=== PATIENT | male | born 1975 | race Caucasian/White ===

== ENCOUNTER 2017-02-18 16:25 | Inpatient (IN) | payer SELFPAY ==
[~2017-02-18] VITALS: Ht 185.4 cm; Wt 69.2 kg
[2017-02-18] VITALS (7 sets, daily range): BP systolic 119–141; BP diastolic 80–99; PULSE 75–105; RESP 18–20; TEMP 98.2; O2SAT 94–98
[2017-02-18] MEDS ORDERED: ACTIVATED CHARCOAL/SORBITOL LIQUID 25 GM/120 ML BTL NG ONE (16:45)
[2017-02-18] MEDS ORDERED: SODIUM CHLORIDE 0.9% FLUSH 10 ML FLUSH IVF PRN (16:45)
[2017-02-18 16:54] LABS: AUTOMATED NEUTROPHIL # 4.4 TH/MM3 (1.8-7.7); BASOPHIL # 0.1 TH/MM3 (0-0.2); BASOPHIL % 1.1 % (0.0-2.0); EOSINOPHIL # 0.3 TH/MM3 (0-0.4); HEMATOCRIT 47.8 % (39.0-51.0); HEMO FLAGS DIFF FINAL; LYMPH % 27.7 % (9.0-44.0); LYMPHOCYTE # 2.2 TH/MM3 (1.0-4.8); MEAN CELL VOLUME 87.8 FL (80.0-100.0); MONO % 9.7 % (0.0-8.0); NEUT % 57.5 % (16.0-70.0); PLATELET COUNT 307 TH/MM3 (150-450); RED BLOOD COUNT 5.44 MIL/MM3 (4.50-5.90); RED CELL DISTRIBUTION WIDTH 12.8 % (11.6-17.2); WHITE BLOOD COUNT 7.9 TH/MM3 (4.0-11.0)
--- NOTE | 2017-02-18 17:08 | PD ---
HPI . Intentional overdose Chief Complaint: OD/ Ingestion Time Seen by Provider: 16:37 Travel History International Travel<30 days: No Contact w/Intl Traveler<30days: No Traveled to known affect area: No History of Present Illness HPI Patient presents voluntarily following an intentional overdose. He states that he took 22 [id number] diphenhydramine tablets. He immediately told his significant other what he had done and was brought here for evaluation and treatment. PFSH Past Medical History Blood Disorders: No Bipolar Disorder: Yes Anxiety: Yes Depression: Yes Cancer: No Cardiovascular Problems: No Diminished Hearing: Yes (SLIGHTLY HARD OF HEARING) Endocrine: No Gastrointestinal Disorders: No Genitourinary: No Immune Disorder: No Implanted Vascular Access Dvce: No Musculoskeletal: No Neurologic: No Psychiatric: Yes (DEPRESSION) Respiratory: No Immunizations Current: Yes PNEUMOCCOCAL Vaccine (Year): 2 Past Surgical History Other Surgery: No Social History Alcohol Use: Yes (DRANK YESTERDAY) Tobacco Use: Yes (1PPD) Substance Use: Yes (marijuana ) Allergies-Medications (Allergen,Severity, Reaction): Coded Allergies: Penicillin (Verified Allergy, Unknown, HIVES, 02/18/17) Reported Meds & Prescriptions Reported Meds & Active Scripts Active Reported Diphenhydramine HCl (Diphenhydramine HCl (Sleep)) 50 Mg Tab Review of Systems Except as stated in HPI: all other systems reviewed are Neg General / Constitutional: No: Fever, Chills Psychiatric: Positive: Depression, Suicidal Ideations Physical Exam Narrative GENERAL: Very pleasant, slightly disheveled appearing thin man who is tremulous. SKIN: Warm and dry. HEAD: Atraumatic. Normocephalic. EYES: Pupils equal and round. Extraocular movements are intact. ENT: No nasal bleeding or discharge. Mucous membranes pink and moist. NECK: Trachea midline. Neck is supple. CARDIOVASCULAR: Regular rate and rhythm. RESPIRATORY: No accessory muscle use. MUSCULOSKELETAL: No obvious deformities. No edema. NEUROLOGICAL: Awake and alert. No obvious cranial nerve deficits. Motor grossly within normal limits. Normal speech. PSYCHIATRIC: Good eye contact. No apparent internal stimuli. Poor judgment. Depressed. Data Data Last Documented VS Vital Signs Date Time Temp Pulse Resp B/P Pulse Ox O2 Delivery O2 Flow Rate FiO2 02/18/17 18:40 81 20 140/92 94 02/18/17 16:48 98.2 Orders Charcoal Active-Sorbitol Liq (Charcoal A (02/18/17 16:45) Basic Metabolic Panel (Bmp) (02/18/17 16:38) Complete Blood Count With Diff (02/18/17 16:38) Iv Access Insert/Monitor (02/18/17 16:38) Ecg Monitoring (02/18/17 16:38) Oximetry (02/18/17 16:38) Sodium Chloride 0.9% Flush (Ns Flush) (02/18/17 16:45) Drug Screen, Random Urine (02/18/17 16:38) Salicylates (Aspirin) (02/18/17 16:38) Tylenol (Acetaminophen) (02/18/17 16:38) Alcohol (Ethanol) (02/18/17 16:40) Hepatic Functional Panel (02/18/17 16:40) Labs Laboratory Tests Test 02/18/17 02/18/17 16:40 18:35 White Blood Count 7.9 TH/MM3 Red Blood Count 5.44 MIL/MM3 Hemoglobin 15.8 GM/DL Hematocrit 47.8 % Mean Corpuscular Volume 87.8 FL Mean Corpuscular Hemoglobin 29.0 PG Mean Corpuscular Hemoglobin 33.0 % Concent Red Cell Distribution Width 12.8 % Platelet Count 307 TH/MM3 Mean Platelet Volume 6.9 FL Neutrophils (%) (Auto) 57.5 % Lymphocytes (%) (Auto) 27.7 % Monocytes (%) (Auto) 9.7 % Eosinophils (%) (Auto) 4.0 % Basophils (%) (Auto) 1.1 % Neutrophils # (Auto) 4.4 TH/MM3 Lymphocytes # (Auto) 2.2 TH/MM3 Monocytes # (Auto) 0.8 TH/MM3 Eosinophils # (Auto) 0.3 TH/MM3 Basophils # (Auto) 0.1 TH/MM3 CBC Comment DIFF FINAL Differential Comment Sodium Level 140 MEQ/L Potassium Level 3.3 MEQ/L Chloride Level 103 MEQ/L Carbon Dioxide Level 28.2 MEQ/L Anion Gap 9 MEQ/L Blood Urea Nitrogen 16 MG/DL Creatinine 1.10 MG/DL Estimat Glomerular Filtration 74 ML/MIN Rate Random Glucose 86 MG/DL Calcium Level 8.9 MG/DL Total Bilirubin 0.4 MG/DL Direct Bilirubin 0.1 MG/DL Indirect Bilirubin 0.3 MG/DL Aspartate Amino Transf 15 U/L (AST/SGOT) Alanine Aminotransferase 21 U/L (ALT/SGPT) Total Protein 7.5 GM/DL Albumin 4.1 GM/DL Salicylates Level 2.7 MG/DL Acetaminophen Level LESS THAN 2.0 MCG/ML Ethyl Alcohol Level LESS THAN 3 MG/DL Urine Opiates Screen NEG Urine Barbiturates Screen NEG Urine Amphetamines Screen NEG Urine Benzodiazepines Screen NEG Urine Cocaine Screen NEG Urine Cannabinoids Screen POS MDM Medical Decision Making Medical Screen Exam Complete: Yes Emergency Medical Condition: Yes Interpretation(s) EKG shows a sinus tachycardia with a ventricular rate of 110. No acute ischemic change. Differential Diagnosis Differential diagnosis includes but is not limited to depression with suicidal gesture, suicide attempt, suicidal ideation, attention seeking behavior. Narrative Course Patient presents to us voluntarily following an intentional overdose of Benadryl. Poison control was called by the triage nurse. Poison control suggested charcoal. This has been initiated along with the usual overdose lab workup. CBC & BMP Diagram 02/18/17 16:40 His tox screen is positive for THC. His Tylenol and aspirin levels are low. His alcohol level was negative. LFTs look normal. At this point, we are just awaiting word from poison control or not he is medically clear. Once he is medically clear, he will be sent to [facility] for psychiatric evaluation. His care is being turned over to the oncoming physician. Diagnosis Primary Impression: Overdose Qualified Code: T50.902A - Overdose, intentional self-harm, initial encounter Condition: Connie Crane MD Feb 18, 2017 17:07
[2017-02-18 17:13] LABS: CHLORIDE 103 MEQ/L (98-107); POTASSIUM 3.3 MEQ/L (3.5-5.1); SODIUM (NA) 140 MEQ/L (136-145)
[2017-02-18 17:16] LABS: ANION GAP 9 MEQ/L (5-15); BICARBONATE 28.2 MEQ/L (21.0-32.0); BLOOD UREA NITROGEN 16 MG/DL (7-18)
[2017-02-18] MEDS ORDERED: DIPH50TA3 (17:18)
[2017-02-18 17:19] LABS: GLOMERULAR FILTRATION RATE 74 ML/MIN (>89)
[2017-02-18 18:35] LABS: ACETAMINOPHEN LESS THAN 2.0 MCG/ML (10.0-30.0)
[2017-02-18 18:52] LABS: BARBITURATES, URINE NEG (NEG)
[2017-02-18 18:53] LABS: AMPHETAMINE, URINE NEG (NEG); COCAINE, URINE NEG (NEG)
[2017-02-18 18:59] LABS: AST (GOT) 15 U/L (15-37)
[2017-02-18 19:01] LABS: TOTAL BILIRUBIN ADULT 0.4 MG/DL (0.2-1.0)
[2017-02-18 19:02] LABS: ALT (GPT) 21 U/L (12-78); INDIRECT BILIRUBIN 0.3 MG/DL (0.0-0.8)
[2017-02-18 19:05] LABS: ALKALINE PHOSPHATASE 83 U/L (45-117)
--- NOTE | 2017-02-18 20:17 | PD ---
Physical Exam Date Seen by Provider: Feb 18, 2017 Time Seen by Provider: 19:20 Narrative Accepted in transfer of care from Dr. Ayoub GENERAL: Well-developed well-nourished male in no acute distress no respiratory distress; GCS 15 Data Data Last Documented VS Vital Signs Date Time Temp Pulse Resp B/P Pulse Ox O2 Delivery O2 Flow Rate FiO2 02/18/17 19:31 79 18 138/94 97 02/18/17 16:48 98.2 Orders Charcoal Active-Sorbitol Liq (Charcoal A (02/18/17 16:45) Basic Metabolic Panel (Bmp) (02/18/17 16:38) Complete Blood Count With Diff (02/18/17 16:38) Iv Access Insert/Monitor (02/18/17 16:38) Ecg Monitoring (02/18/17 16:38) Oximetry (02/18/17 16:38) Sodium Chloride 0.9% Flush (Ns Flush) (02/18/17 16:45) Drug Screen, Random Urine (02/18/17 16:38) Salicylates (Aspirin) (02/18/17 16:38) Tylenol (Acetaminophen) (02/18/17 16:38) Alcohol (Ethanol) (02/18/17 16:40) Hepatic Functional Panel (02/18/17 16:40) Electrocardiogram (02/18/17 ) Potassium Chloride (Kcl) (02/18/17 20:30) Labs Laboratory Tests Test 02/18/17 02/18/17 16:40 18:35 White Blood Count 7.9 TH/MM3 Red Blood Count 5.44 MIL/MM3 Hemoglobin 15.8 GM/DL Hematocrit 47.8 % Mean Corpuscular Volume 87.8 FL Mean Corpuscular Hemoglobin 29.0 PG Mean Corpuscular Hemoglobin 33.0 % Concent Red Cell Distribution Width 12.8 % Platelet Count 307 TH/MM3 Mean Platelet Volume 6.9 FL Neutrophils (%) (Auto) 57.5 % Lymphocytes (%) (Auto) 27.7 % Monocytes (%) (Auto) 9.7 % Eosinophils (%) (Auto) 4.0 % Basophils (%) (Auto) 1.1 % Neutrophils # (Auto) 4.4 TH/MM3 Lymphocytes # (Auto) 2.2 TH/MM3 Monocytes # (Auto) 0.8 TH/MM3 Eosinophils # (Auto) 0.3 TH/MM3 Basophils # (Auto) 0.1 TH/MM3 CBC Comment DIFF FINAL Differential Comment Sodium Level 140 MEQ/L Potassium Level 3.3 MEQ/L Chloride Level 103 MEQ/L Carbon Dioxide Level 28.2 MEQ/L Anion Gap 9 MEQ/L Blood Urea Nitrogen 16 MG/DL Creatinine 1.10 MG/DL Estimat Glomerular Filtration 74 ML/MIN Rate Random Glucose 86 MG/DL Calcium Level 8.9 MG/DL Total Bilirubin 0.4 MG/DL Direct Bilirubin 0.1 MG/DL Indirect Bilirubin 0.3 MG/DL Aspartate Amino Transf 15 U/L (AST/SGOT) Alanine Aminotransferase 21 U/L (ALT/SGPT) Alkaline Phosphatase 83 U/L Total Protein 7.5 GM/DL Albumin 4.1 GM/DL Salicylates Level 2.7 MG/DL Acetaminophen Level LESS THAN 2.0 MCG/ML Ethyl Alcohol Level LESS THAN 3 MG/DL Urine Opiates Screen NEG Urine Barbiturates Screen NEG Urine Amphetamines Screen NEG Urine Benzodiazepines Screen NEG Urine Cocaine Screen NEG Urine Cannabinoids Screen POS MDM Medical Record Reviewed: Yes Supervised Visit with KANDI: No Interpretation(s) CBC & BMP Diagram 02/18/17 16:40 Vital Signs Date Time Temp Pulse Resp B/P Pulse Ox O2 Delivery O2 Flow Rate FiO2 02/18/17 19:31 79 18 138/94 97 02/18/17 18:40 81 20 140/92 94 02/18/17 17:21 88 20 138/90 95 02/18/17 16:53 97 02/18/17 16:48 98.2 105 20 141/99 97 LFTs and normal range Acetaminophen: Less than 2, not elevated; salicylate level II.7, not elevated; urine drug screen positive for cannabinoids; alcohol: Less than 3, not elevated EKG sinus tachycardia rate 110 incomplete right bundle branch block nonspecific septal T wave changes no ectopy QRS of 104 ms QTc 427 ms EKG #2 sinus rhythm rate 73 incomplete right bundle branch block with QRS of 102 ms QTC 410 ms Differential Diagnosis Accepted in transfer of care from Dr. Ayoub; please refer to her dictation Narrative Course Accepted in transfer of care from Dr. Ayoub; waiting labs to complete medical At 8:15 PM patient remains alert oriented to person place time and events GCS 15 recently ambulation bathroom with sitter without issue labs resulted and found to be in normal range Patient's case has been discussed with poison control with recommendation for repeat EKG otherwise values are acceptable for medical clearance and patient has been observed for approximately 4 hours. Patient's potassium replaced with oral potassium. Patient is medically cleared for psych evaluation/psych screening for intentional reported Benadryl overdose; patient Glez act placed by Dr. Ayoub. Diagnosis Primary Impression: Overdose Qualified Code: T50.902A - Overdose, intentional self-harm, initial encounter Additional Impression: Hypokalemia Condition: Stable Mitra Sequeira MD Feb 18, 2017 20:17
[2017-02-18] MEDS ORDERED: POTASSIUM CHLORIDE 20 MEQ CONTROLLED RELEASE TAB PO ONE (20:30)
[2017-02-19 02:04] VITALS: BP 111/66; PULSE 60; RESP 17; O2SAT 96
[2017-02-19 06:30] VITALS: BP 138/83; PULSE 59; RESP 17; O2SAT 98
[2017-02-19] MEDS ORDERED: hydrOXYzine HCL 50 MG TAB PO PRN (09:30)
[2017-02-19] MEDS ORDERED: ALUMINUM/MAGNESIUM/SIMETH 30 ML CUP PO PRN (09:30)
[2017-02-19] MEDS: THIAMINE HCL 100 MG TAB PO SCH (09:30)
[2017-02-19] MEDS ORDERED: BENZTROPINE MESYLATE 1 MG TAB PO PRN (09:30)
[2017-02-19] MEDS ORDERED: BENZTROPINE MESYLATE 2 MG/2 ML VIAL IM PRN (09:30)
[2017-02-19] MEDS ORDERED: diphenhydrAMINE HCL 50 MG CAP PO PRN (09:30)
[2017-02-19] MEDS ORDERED: LORazepam 2 MG TAB PO PRN (09:30)
[2017-02-19] MEDS ORDERED: FLUMAZENIL 0.5 MG/5 ML VIAL IV PUSH PRN (09:30)
[2017-02-19] MEDS ORDERED: LORazepam 2 MG/ML VIAL IV PUSH PRN ×4 (09:30)
[2017-02-19] MEDS: FOLIC ACID 1 MG TAB PO SCH (09:30)
[2017-02-19] MEDS ORDERED: ACETAMINOPHEN 325 MG TAB PO PRN (09:30)
[2017-02-19] MEDS ORDERED: MAGNESIUM HYDROXIDE SUSP 30 ML CUP PO PRN (09:30)
[2017-02-19 10:00] VITALS: BP 120/67; PULSE 63; RESP 18
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
[2017-02-19] MEDS: buPROPion HCL 150 MG SUSTAINED RELEASE TAB PO SCH (11:00)
[2017-02-19 14:57] VITALS: BP 121/83; PULSE 60; RESP 18; TEMP 98.9
[2017-02-19 19:16] VITALS: BP 133/85; PULSE 61; RESP 19; TEMP 98.5; O2SAT 97
[2017-02-19] MEDS: LORazepam 1 MG TAB PO PRN (21:30)
[2017-02-20 06:17] VITALS: BP 113/65; PULSE 65; RESP 16; TEMP 98; O2SAT 97
[2017-02-20 07:29] LABS: ANION GAP 5 MEQ/L (5-15); BICARBONATE 29.6 MEQ/L (21.0-32.0); BLOOD UREA NITROGEN 17 MG/DL (7-18); CHLORIDE 104 MEQ/L (98-107); GLOMERULAR FILTRATION RATE 85 ML/MIN (>89); MAGNESIUM 2.3 MG/DL (1.5-2.5); POTASSIUM 3.9 MEQ/L (3.5-5.1); SODIUM (NA) 139 MEQ/L (136-145)
[2017-02-20 07:31] LABS: HDL CHOLESTEROL 34.8 MG/DL (40.0-60.0); LDL CHOLESTEROL 66 MG/DL (0-99)
[2017-02-20] MEDS: REMOVE OLD PATCH T-DERMAL SCH (09:00)
[2017-02-20] MEDS: NICOTINE 21 MG/24 HR PATCH T-DERMAL SCH (09:00)
[2017-02-20] MEDS: buPROPion HCL 150 MG SUSTAINED RELEASE TAB PO SCH (09:23)
[2017-02-20] MEDS: THIAMINE HCL 100 MG TAB PO SCH (09:23)
[2017-02-20] MEDS: FOLIC ACID 1 MG TAB PO SCH (09:23)
[2017-02-20] MEDS ORDERED: PNEUMOCOCCAL POLYVALENT INJ 25 MCG/0.5 ML SYR IM ONE (10:00)
--- NOTE | 2017-02-20 18:25 | HHI.PYPN ---
Subjective Remarks Pt seen and discussed with staff. He states that he is tolerating medications without side effects.He states that mood is a bit better today. He processed suicide attempt with MD and RN. He reports intentions at time of OD was to . He reports that he has a long hx of depression and substance abuse since adolescence. He reports that he previously attended [facility] but stopped because he did not like his doctor there and felt that he no longer needed antidepressants. He reports that he was under numerous stressors at time of OD and felt overwhelmed. "I was having one of my episodes." He remains depressed but reports outlook is a bit more hopeful today. He denies current SI/HI. Review of Systems Psychiatric: COMPLAINS OF: Depression Objective Alert: Yes [place]: Person, Place, Date, Situation Mood: Depressed Affect: Restricted Memory Intact: Immediate, Recent, Remote Hallucinations: Other (none) Delusions: No Delusion Type: Other (none) Suicidal: Ideation (denies) Homicidal: Ideation (denies) Insight/Judgement fair Labs Test 02/20/17 06:09 Sodium Level 139 MEQ/L Potassium Level 3.9 MEQ/L Chloride Level 104 MEQ/L Carbon Dioxide Level 29.6 MEQ/L Anion Gap 5 MEQ/L Blood Urea Nitrogen 17 MG/DL Creatinine 0.97 MG/DL Estimat Glomerular Filtration 85 ML/MIN Rate Random Glucose 79 MG/DL Calcium Level 9.0 MG/DL Magnesium Level 2.3 MG/DL Triglycerides Level 117 MG/DL Cholesterol Level 124 MG/DL LDL Cholesterol 66 MG/DL HDL Cholesterol 34.8 MG/DL Cholesterol/HDL Ratio 3.56 RATIO Vitals/IOs Vital Signs Date Time Temp Pulse Resp B/P Pulse Ox O2 Delivery O2 Flow Rate FiO2 02/20/17 06:17 98.0 65 16 113/65 97 02/19/17 10:00 Room Air Assessment & Plan Problem List: (1) MDD (major depressive disorder), recurrent episode, severe ICD Code: F33.2 Assessment & Plan Continue current tx plan. Estimated LOS: days Justification for Cont. Inpt. impairments in safety Ashley Coronel MD Feb 20, 2017 18:25
[2017-02-20 20:15] VITALS: BP 132/77; PULSE 55; RESP 18; TEMP 98; O2SAT 97
[2017-02-20] MEDS: LORazepam 1 MG TAB PO PRN (21:18)
[2017-02-21 06:00] VITALS: BP 102/60; PULSE 63; RESP 18; TEMP 98; O2SAT 97
[2017-02-21] MEDS: REMOVE OLD PATCH T-DERMAL SCH (09:00)
[2017-02-21] MEDS: NICOTINE 21 MG/24 HR PATCH T-DERMAL SCH (09:00)
[2017-02-21] MEDS: THIAMINE HCL 100 MG TAB PO SCH (09:26)
[2017-02-21] MEDS: FOLIC ACID 1 MG TAB PO SCH (09:26)
[2017-02-21] MEDS: buPROPion HCL 150 MG SUSTAINED RELEASE TAB PO SCH (09:26)
[2017-02-21 11:04] LABS: HEMOGLOBIN A1b 1.7 %; HEMOGLOBIN Ao 85.8 %; HEMOGLOBIN P3 3.7 %
[2017-02-21 17:34] VITALS: BP 116/74; PULSE 56; RESP 20; TEMP 97.7; O2SAT 99
[2017-02-21 17:41] VITALS: BP 116/74; PULSE 70; RESP 20; TEMP 97.7; O2SAT 99
--- NOTE | 2017-02-21 18:50 | HHI.PYPN ---
Subjective Remarks Pt seen and discussed with staff. Pt remains irritable and depressed. He minimizes symptoms and states that he is upset because his partner is crying a lot. "she's worse off then me." No medication side effects. Limited coping skills. He denies SI/HI. Review of Systems Psychiatric: COMPLAINS OF: Depression Objective Alert: Yes [place]: Person, Place, Date, Situation Mood: Depressed Affect: Restricted Memory Intact: Immediate, Recent, Remote Hallucinations: Other (none) Delusions: No Delusion Type: Other (none) Suicidal: Ideation (denies) Homicidal: Ideation (denies) Insight/Judgement poor Vitals/IOs Vital Signs Date Time Temp Pulse Resp B/P Pulse Ox O2 Delivery O2 Flow Rate FiO2 02/21/17 17:41 97.7 70 20 116/74 99 02/19/17 10:00 Room Air Assessment & Plan Problem List: (1) MDD (major depressive disorder), recurrent episode, severe ICD Code: F33.2 Assessment & Plan Continue current tx plan. Estimated LOS: days Justification for Cont. Inpt. monitoring for safety, risk of decompensation Ashley Coronel MD Feb 21, 2017 18:50
[2017-02-21] MEDS: LORazepam 1 MG TAB PO PRN (21:30)
--- NOTE | 2017-02-21 21:41 | EKG ---
Date Performed: 02/18/2017 Time Performed: 20:21:42 PTAGE: 41 years EKG: Sinus rhythm . Incomplete RBBB Borderline ECG PREVIOUS TRACING : 02/18/2017 16.40 DOCTOR: Marisol Velez Interpretating Date/Time 02/21/2017 21:40:18
--- NOTE | 2017-02-21 21:42 | EKG ---
Date Performed: 02/18/2017 Time Performed: 16:40:38 PTAGE: 41 years EKG: Sinus tachycardia. Incomplete RBBB Septal T wave changes are nonspecific Borderline ECG PREVIOUS TRACING : 07/13/2016 14.10 DOCTOR: Marisol Velez Interpretating Date/Time 02/21/2017 21:40:54
[2017-02-22 06:02] VITALS: BP 104/64; PULSE 54; RESP 17; TEMP 97.6; O2SAT 97
[2017-02-22] MEDS: FOLIC ACID 1 MG TAB PO SCH (08:49)
[2017-02-22] MEDS: THIAMINE HCL 100 MG TAB PO SCH (08:49)
[2017-02-22] MEDS: buPROPion HCL 150 MG SUSTAINED RELEASE TAB PO SCH (08:49)
[2017-02-22] MEDS: REMOVE OLD PATCH T-DERMAL SCH (09:00)
[2017-02-22] MEDS: NICOTINE 21 MG/24 HR PATCH T-DERMAL SCH (09:00)
[2017-02-22] MEDS ORDERED: FOLI1TAB4 PO (14:54)
[2017-02-22] MEDS ORDERED: VITA100T2 PO (14:54)
[2017-02-22] MEDS ORDERED: BUPR150CR PO (14:54)
--- NOTE | 2017-02-22 15:03 | HHI.DS ---
Psychiatry Discharge Summary Inpatient Psychiatric care?: Yes Advance Directive: No Reason Not Provided: pt declined Mental Health AdvanceDirective: No Health Care Proxy: No Admission Admission Date Feb 19, 2017 at 09:31 Admission Diagnosis: (1) MDD (major depressive disorder), recurrent episode, severe ICD Code: F33.2 Brief History Please see H&P dictated by Dr. Ricki de on 02/19/17 Tobacco Use In Past 30 Days: 5 or More Cigarettes/Day Alcohol Use: Monthly or Less Hospital Course Patient seen in his room nurse Mikey, chart reviewed. Dr. lyle tissue reviewed and agreed with. Patient states his suicidality has revolved. Now denies suicidality homicidality voices or visions. States his back on his medication his mood is better. he said he has had good conversations with his fiance. She wants him home. He states he has not smoked marijuana in a week is willing to commit Still sobriety from alcohol and any other drugs. At this time patient does not meet criteria for inpatient psychiatric hospitalization. Is able contracted to do no harm. He is willing to follow-up [facility] outpatient. Thus patient will be discharged today with Rx 1 month follow- up as above Results Blood Pressure 104 / 64 Vital Signs Date Time Temp Pulse Resp B/P Pulse Ox O2 Delivery O2 Flow Rate FiO2 02/22/17 06:02 97.6 54 17 104/64 97 02/19/17 10:00 Room Air Laboratory Tests Test 02/20/17 06:09 Estimat Glomerular Filtration 85 ML/MIN (>89) Rate HDL Cholesterol 34.8 MG/DL (40.0-60.0) Laboratory Results Test 02/20/17 06:09 Hemoglobin A1c 5.3 % (4.3-6.0) Triglycerides Level 117 MG/DL (42-150) Cholesterol Level 124 MG/DL (120-200) LDL Cholesterol 66 MG/DL (0-99) HDL Cholesterol 34.8 MG/DL (40.0-60.0) Summary of Procedures None done Pending results at discharge: No Medications # of Antipsychotic meds at D/C: 0 Approp Antipsych med options 1 - Minimum of three failed multiple trials of monotherapy. 2 - Documented plan to taper to monotherapy due to previous use of multiple meds OR cross-taper in progress at D/C. 3 - Documentation of augmentation of Clozapine. 4 - Justification other than those listed in allowable values 1-3, document here : Discharge Discharge Date: Feb 22, 2017 Discharge Diagnosis: (1) MDD (major depressive disorder), recurrent episode, severe Diagnosis: Principal ICD Code: F33.2 Mental Status Exam at Disch Alert oriented white male calm cooperative no acute distress, normal active, mood is euthymic to mildly dysphoric, affect shows good range and intensity. Speech rate and rhythm within normal limits for no formal thought disorders. No auditory or visual hallucinations no delusions noted. Insight and judgment poor to fair. Cognition grossly intact Pt Condition on Discharge: Stable Discharge Disposition: Discharge Home Discharge Instructions Diet Instructions: As Tolerated, No Restrictions Activities you can perform: Regular-No Restrictions Scheduled Appointment: Denilson Lemos Appointment Date: Feb 26, 2017 Appointment Time: 07:30am Discharge Time > 30 minutes Discharge/Advance Care Plan Health Problems: (1) MDD (major depressive disorder), recurrent episode, severe Goals to promote your health * To prevent worsening of your condition and complications * To maintain your health at the optimal level Directions to meet your goals Take your medications as prescribed Follow your dietary instruction Follow activity as directed Keep your appointments as scheduled Take your immunizations and boosters as scheduled If your symptoms worsen call your PCP, if no PCP go to Urgent Care Center or Emergency Room For 14/06 questions related to your inpatient stay or results of tests pending at discharge, please contact Dr. Nikhil Woods at Smoking is Dangerous to Your Health. Avoid second hand smoking Nikhil Woods MD Feb 22, 2017 15:03
== END 2017-02-22 17:15 | disposition home or self-care (01) | DRG 885 ==
LOC: PHED 16:25 → NEDA 02-19 09:31 → H260 02-19 11:20
PROVIDERS: ADMIT Psychiatry & Neurology Psychiatry; ATTEND Psychiatry & Neurology Psychiatry
DX: F33.1 Major depressive disorder, recurrent, moderate (principal); E87.6 Hypokalemia; F10.20 Alcohol dependence, uncomplicated; F12.10 Cannabis abuse, uncomplicated; T50.902A Poisoning by unspecified drugs, medicaments and biological substances, intentional self-harm, initial encounter; H91.90 Unspecified hearing loss, unspecified ear; F17.200 Nicotine dependence, unspecified, uncomplicated; Z79.899 Other long term (current) drug therapy; Z91.5 Personal history of self-harm; Y92.9 Unspecified place or not applicable
CPT/HCPCS: 80048; 80061; 80076; 80307; 83036; 83735; 85025; 93005

== ENCOUNTER 2017-12-26 20:56 | Emergency (ER) | payer SELFPAY ==
[~2017-12-26] VITALS: Ht 185.4 cm; Wt 75.9 kg
[~2017-12-26 20:56] MED LIST: BUPR150CR PO; FOLI1TAB4 PO; VITA100T2 PO
[2017-12-26 20:58] VITALS: BP 118/65; PULSE 84; RESP 18; TEMP 98.8; O2SAT 96
[2017-12-26] MEDS ORDERED: IBUP1TAB7 PO (22:01)
[2017-12-26] MEDS ORDERED: CEPH-460 PO (22:01)
--- NOTE | 2017-12-26 22:02 | PD ---
HPI Chief Complaint: Oral / Dental Pain or Problem Time Seen by Provider: 21:55 Travel History International Travel<30 days: No Contact w/Intl Traveler<30days: No Traveled to known affect area: No History of Present Illness HPI The patient is a 42-year-old male that has a history of bad teeth who complains of his upper incisors becoming painful on the gums and surrounding tissues swollen for about a week. He did not call a dentist yet. He does not have any insurance. He states he got a rash when he was a child after eating prescribed penicillin. PFSH Past Medical History Medical History: Denies Significant Hx Blood Disorders: No Bipolar Disorder: Yes Anxiety: Yes Depression: Yes Cancer: No Cardiovascular Problems: No Diabetes: No Diminished Hearing: Yes (SLIGHTLY HARD OF HEARING) Endocrine: No Gastrointestinal Disorders: No Genitourinary: No Headaches: No Immune Disorder: No Implanted Vascular Access Dvce: No Musculoskeletal: No Neurologic: No Psychiatric: Yes (depression, suicide attempt times two) Respiratory: No Immunizations Current: Yes Seizures: No Tetanus Vaccination: < 5 Years Influenza Vaccination: No PNEUMOCCOCAL Vaccine (Year): 2 Past Surgical History Surgical History: No Previous Surgery Other Surgery: No Social History Alcohol Use: Yes (OCC) Tobacco Use: Yes (1PPD) Substance Use: Yes (marijuana daily) Allergies-Medications (Allergen,Severity, Reaction): Coded Allergies: penicillin G (Unverified Allergy, Unknown, HIVES, 12/26/17) Reported Meds & Prescriptions Reported Meds & Active Scripts Active No Active Prescriptions or Reported Medications Review of Systems Except as stated in HPI: all other systems reviewed are Neg Physical Exam Narrative GENERAL: Well-nourished, well-developed patient. SKIN: Focused skin assessment warm/dry. HEAD: Normocephalic. EYES: No scleral icterus. No injection or drainage. NECK: Supple, trachea midline. No JVD or lymphadenopathy. CARDIOVASCULAR: Regular rate and rhythm without murmurs, gallops, or rubs. RESPIRATORY: Breath sounds equal bilaterally. No accessory muscle use. GASTROINTESTINAL: Abdomen soft, non-tender, nondistended. MUSCULOSKELETAL: No cyanosis, or edema. BACK: Nontender without obvious deformity. No CVA tenderness. DENTAL: The incisors are slightly loose, multiple chipped teeth are present, the gums and upper lip are swollen but no drainable abscess is seen. Data Data Last Documented VS Vital Signs Date Time Temp Pulse Resp B/P (MAP) Pulse Ox O2 Delivery O2 Flow Rate FiO2 12/26/17 21:05 (82) 12/26/17 20:58 98.8 84 18 96 MDM Medical Decision Making Medical Screen Exam Complete: Yes Emergency Medical Condition: Yes Medical Record Reviewed: Yes Differential Diagnosis Dental infection, drainable dental abscess, gingivitis Narrative Course The patient has a dental infection. He does not have a drainable dental abscess. He also has gingivitis. Plan: The patient will be given Keflex and 800 mg Motrin. Additional Instructions: As we discussed, you need to follow-up with a dentist as soon as possible. I gave you several refills on the Keflex antibiotic. Med/Other Pt SpecificInfo: Prescription(s) given Scripts Ibuprofen (Ibuprofen) 800 Mg Tab 800 MG PO TID, #44 TAB 0 Refills Prov: Juan Pablo Briones MD 12/26/17 Cephalexin (Keflex) 500 Mg Cap 500 MG PO Q8H for Infection, #30 CAP 0 Refills Prov: Juan Pablo Briones MD 12/26/17 Disposition: 01 DISCHARGE HOME Condition: Stable Juan Pablo Briones MD Dec 26, 2017 22:02
[2017-12-26] MEDS ORDERED: CEPHALEXIN MONOHYDRATE 500 MG CAP PO ONE (22:15)
[2017-12-26] MEDS ORDERED: IBUPROFEN 800 MG TAB PO ONE (22:15)
== END 2017-12-26 22:15 | disposition home or self-care (01) ==
LOC: PHEFT 20:56
DX: K04.7 Periapical abscess without sinus (principal); K05.10 Chronic gingivitis, plaque induced; F31.9 Bipolar disorder, unspecified; F41.9 Anxiety disorder, unspecified; F17.200 Nicotine dependence, unspecified, uncomplicated; Z88.0 Allergy status to penicillin
CPT/HCPCS: 99283